=== PATIENT | female | born 1930 | race Hispanic/Latino ===

== ENCOUNTER 2017-12-08 09:01 | Emergency (ER) | payer MEDICARE ==
[2017-12-08 09:10] VITALS: BMI 33.3
[2017-12-08 09:26] VITALS: RESP 18; TEMP 97.9
--- NOTE | 2017-12-08 09:35 | ED PDOC ---
Arrival/HPI - General Chief Complaint: Trauma Time Seen by Provider: 12/08/17 09:11 Historian: Patient, Family - History of Present Illness Narrative History of Present Illness (Text): 12/08/17 09:36 A 87 year old female, whose past medical history includes 5 cardiac stents, a defibrillator, hypertension, and hyperlipidemia, presents to the emergency department accomapnied by family s/p mechanical fall from yesterday. Patient reports she was in her yard when she forgot to lock on of the brakes on her walker with a seat, as she was bending down to lock the brake the walker slid out from under her and she fell straight down on her tailbone and buttocks. Patient notes in the fall she landed on her right arm injuring her elbow, wrist, and hand. Patient does not remember and is unsure of any head injury. Patient and family note she is seeing Dr. Camarena, her PMD, on . Patient denies any fever, chills, shortness of breath, chest pain, diarrhea, nausea, vomiting, urinary symptoms, back pain, neck pain, headache, dizziness, or any other complaints. PMD: Ziyad Franco Manager Employee Benefits: Dr. Hammond Past Medical History - Reproductive Menopause: No - Cardiac Hx Cardiac Disorders: Yes Hx Hypertension: Yes - Pulmonary Hx Respiratory Disorders: No - Neurological Hx Neurological Disorder: No - HEENT Hx HEENT Disorder: No Hx Blind: No - Renal Hx Renal Disorder: No - Endocrine/Metabolic Hx Endocrine Disorders: No - Hematological/Oncological Hx Blood Disorders: No - Integumentary Hx Dermatological Disorder: No - Musculoskeletal/Rheumatological Hx Musculoskeletal Disorders: Yes Hx Falls: Yes - Gastrointestinal Hx Gastrointestinal Disorders: No - Genitourinary/Gynecological Hx Genitourinary Disorders: No - Psychiatric Hx Psychophysiologic Disorder: No Hx Substance Use: No - Surgical History Hx Appendectomy: Yes Hx Cardiac Catheterization: Yes (5 stents & defib) Hx Coronary Stent: Yes (5) Hx Hysterectomy: Yes (partial) Hx Joint Replacement: Yes (bilateral knees, right hip) Other/Comment: defibrillator - Anesthesia Hx Anesthesia: Yes Hx Anesthesia Reactions: Yes ("I got sick to my stomach after it.") Family/Social History Family/Social History: No Known Family HX Smoking Status: Never Smoked Hx Alcohol Use: No (OCCASIONALLY) Hx Substance Use: No Allergies/Home Meds Allergies/Adverse Reactions: Allergies enalapril Allergy (Verified 11/26/15 18:51) RASH propofol Allergy (Verified 11/26/15 18:51) RASH Home Medications: Home Meds Medication Instructions Recorded Confirmed Aspirin 81 mg PO DAILY 02/02/15 11/26/15 RX: Alprazolam [Xanax] 0.25 mg PO DAILY 02/02/15 11/26/15 RX: Irbesartan [Avapro] 150 mg PO DAILY 02/02/15 11/26/15 RX: Isosorbide Mononitrate ER 30 mg PO DAILY 02/02/15 11/26/15 [Imdur ER] RX: Metoprolol Succinate XL 25 mg PO DAILY 02/02/15 11/26/15 [Toprol XL] Warfarin Sodium [Coumadin] 5 mg PO DAILY 02/02/15 11/26/15 RX: Furosemide [Lasix] 40 mg PO DAILY 11/26/15 11/26/15 RX: Pravastatin Sodium [Pravachol] 40 mg PO DAILY 11/26/15 11/26/15 Review of Systems - Review of Systems Constitutional: absent: Fevers, Night Sweats Respiratory: absent: SOB Cardiovascular: absent: Chest Pain Gastrointestinal: absent: Diarrhea, Nausea, Vomiting Genitourinary Female: absent: Urine Output Changes Musculoskeletal: Back Pain (+pain in lower back Ul), Other (+pain in right arm) Endocrine: absent: Normal, Diaphoresis, Polyuria, Polydipsia, Other Physical Exam Vital Signs Reviewed: Yes Vital Signs Temp Pulse Resp BP Pulse Ox 12/08/17 11:41 90 18 127/65 96 12/08/17 09:15 97.9 F 93 H 18 143/61 97 Temperature: Afebrile Blood Pressure: Normal Pulse: Tachycardic Respiratory Rate: Normal Appearance: Positive for: Well-Appearing, Non-Toxic, Comfortable Pain Distress: None Mental Status: Positive for: Alert and Oriented X 3 - Systems Exam Head: Present: Atraumatic, Normocephalic. No: Tenderness, Contusion, Swelling, Ecchymosis, Abrasion, Laceration Pupils: Present: PERRL Extroacular Muscles: Present: EOMI Conjunctiva: Present: Normal Mouth: Present: Moist Mucous Membranes Neck: Present: Normal Range of Motion Respiratory/Chest: Present: Clear to Auscultation, Good Air Exchange. No: Respiratory Distress, Accessory Muscle Use Cardiovascular: Present: Regular Rate and Rhythm, Normal S1, S2. No: Murmurs Abdomen: No: Tenderness, Distention, Peritoneal Signs Back: Present: Other (+tenderness to sacrum). No: CVA Tenderness, Midline Tenderness, Paraspinal Tenderness, Pain with Leg Raise, Decubitus Ulcer Upper Extremity: Present: Tenderness (+tenderness to wrist) Lower Extremity: Present: Normal Inspection. No: Edema Neurological: Present: GCS=15, CN II-XII Intact, Speech Normal Skin: Present: Abrasion (+abrasion to right elbow) Psychiatric: Present: Alert, Oriented x 3, Normal Insight, Normal Concentration Medical Decision Making ED Course and Treatment: 12/08/17 09:36 Impression: 87 year old female presenting to the emergency department s/p fall. Differential Diagnosis included but are not limited to: rule out ACH Plan: -- Heact CT without contrast -- Tylenol -- Xray of elbow -- Xray of left hand -- Xray of pelvis -- Xray of scarum and coccyx -- Xray of left wrist -- Reassess and disposition Prior Visits: Notes and results from previous visits were reviewed. Progress Notes: 12/08/17 11:12 Procedure: Head CT Impression: No acute intracranial pathology identified. 12/08/17 11:19 As per radiologist, all Xrays were reviewed and results are negative. CT head negative. Patient's wrist was given a soft wrist brace. Patient was given instr uctions on fall precautions and advised to follow up with her primary care doctor. - Lab Interpretations Lab Results: Lab Results 12/08/17 09:55: PT 26.0 H, INR 2.22, APTT 34.7 - RAD Interpretation Radiology Orders: 12/08/17 09:33 HEAD W/O CONTRAST [CT] Stat 12/08/17 09:34 ELBOW RIGHT 3 VIEWS ROUTINE [RAD] Stat HAND RIGHT 3 VIEWS [RAD] Stat WRIST, RIGHT 3 VIEWS [RAD] Stat 12/08/17 09:35 PELVIS ONE VIEW [RAD] Stat SACRUM &/or COCCYX (MIN 2VW) [RAD] Stat - Medication Orders Current Medication Orders: Discontinued Medications Acetaminophen (Tylenol 325mg Tab) 975 mg PO STAT STA Stop: 12/08/17 09:39 Last Admin: 12/08/17 09:46 Dose: 975 mg - Scribe Statement The provider has reviewed the documentation as recorded by the Ashley Romero All medical record entries made by the Mansiibe were at my direction and person ally dictated by me. I have reviewed the chart and agree that the record accurately reflects my personal performance of the history, physical exam, medical decision making, and the department course for this patient. I have also personally directed, reviewed, and agree with the discharge instructions and disposition. Disposition/Present on Arrival - Present on Arrival Any Indicators Present on Arrival: No History of DVT/PE: No History of Uncontrolled Diabetes: No Urinary Catheter: No History of Decub. Ulcer: No History Surgical Site Infection Following: None - Disposition Have Diagnosis and Disposition been Completed?: Yes Diagnosis: Fall, Wrist sprain, Elbow contusion Disposition: HOME/ ROUTINE Disposition Time: 11:41 Patient Plan: Discharge Condition: IMPROVED Discharge Instructions (ExitCare): Wrist Sprain (DC), Contusion (DC), Preventing Falls Additional Instructions: GRACIA ISLAS, thank you for letting us take care of you today. Your provider was Brian Thomas DO and you were treated for WRIST INJURY. The emergency medical care you received today was directed at your acute symptoms. If you were prescribed any medication, please fill it and take as directed. It may take several days for your symptoms to resolve. Return to the Emergency Department if your symptoms worsen, do not improve, or if you have any other problems. Please contact your doctor or call one of the physicians/clinics you have been referred to that are listed on the Patient Visit Information form that is included in your discharge packet. Bring any paperwork you were given at [facility], [place] with you along with any medications you are taking to your follow up visit. Our treatment cannot replace ongoing medical care by a primary care provider outside of the emergency department. Thank you for allowing the [facility] team to be part of your care today. If you had an X-Ray or CT scan: A Radiologist will review the ED reading if any change in treatment is needed we will contact you. If you had a blood, urine, or wound culture: It will take several days for the results, if any change in treatment is needed we will contact you. If you had an STI test: It will take 48 hours for the results. Please call after 1 week if you have not heard back. Referrals: Ziyad Camarena MD [Primary Care Provider] - Follow up with primary Forms: PagerDuty (Sinhala)
[2017-12-08 10:19] LABS: INR 2.22; PARTIAL THROMBOPLASTIN TIME 34.7 Seconds (25.1-36.5)
--- NOTE | 2017-12-08 10:39 | CT ---
Date of service: 12/08/2017 PROCEDURE: CT HEAD WITHOUT CONTRAST. HISTORY: suspected head injury r/o ich COMPARISON: Noncontrast head CT performed 11/30/15 TECHNIQUE: Axial computed tomography images were obtained through the head/brain without intravenous contrast. Radiation dose: Total exam DLP = 945.78 mGy-cm. This CT exam was performed using one or more of the following dose reduction techniques: Automated exposure control, adjustment of the mA and/or kV according to patient size, and/or use of iterative reconstruction technique. FINDINGS: HEMORRHAGE: No intracranial hemorrhage. BRAIN: Diffuse atrophy with prominence of the ventricles and sulci noted. No mass effect or edema. Scattered periventricular and subcortical white matter hypodensities, which are nonspecific, but often seen with chronic microvascular ischemic disease. VENTRICLES: No hydrocephalus. CALVARIUM: Unremarkable. PARANASAL SINUSES: Unremarkable as visualized. No significant inflammatory changes. MASTOID AIR CELLS: Under aeration of the left mastoid air cells; correlate for history of mastoiditis. The right mastoid air cells appear unremarkable. OTHER FINDINGS: None. IMPRESSION: No acute intracranial pathology identified. Additional incidental findings as above.
--- NOTE | 2017-12-08 11:23 | RAD ---
Date of service: 12/08/2017 PROCEDURE: Right Wrist Radiographs. HISTORY: fall r/o fx COMPARISON: None. FINDINGS: BONES: Normal. No fracture. JOINTS: Degenerative changes are seen in the carpal joints as well as the radial ulnar joint. SOFT TISSUES: Normal. OTHER FINDINGS: None. IMPRESSION: No acute fracture
[2017-12-08 11:41] VITALS: BP 127/65; PULSE 90; O2SAT 96
--- NOTE | 2017-12-08 15:04 | RAD ---
Date of service: 12/08/2017 PROCEDURE: Pelvis single view HISTORY: fall r/o fx COMPARISON: TECHNIQUE: FINDINGS: There is a right hip prosthesis. There is no fracture or loosening. The left hip is unremarkable. The pelvis is intact IMPRESSION: Negative study
--- NOTE | 2017-12-08 15:05 | RAD ---
Date of service: 12/08/2017 PROCEDURE: Radiographs of the Sacrum and Coccyx HISTORY: fall r/o fx COMPARISON: None available. TECHNIQUE: Frontal and lateral views of the sacrum and coccyx FINDINGS: BONES: Sacrum and coccyx unremarkable. No fracture or focal lesion. SACROILIAC JOINTS: Unremarkable. OTHER FINDINGS: None. IMPRESSION: Unremarkable radiographs of the sacrum and coccyx.
--- NOTE | 2017-12-08 15:06 | RAD ---
PROCEDURE: Right Hand Radiographs. HISTORY: fall r/o fx COMPARISON: None. FINDINGS: BONES: Normal. No fracture. JOINTS: Osteoarthritis can be seen in the DIP and PIP joints as well as the carpal bones. Degenerative changes are also seen in the radial ulnar joint. SOFT TISSUES: Normal. OTHER FINDINGS: None. IMPRESSION: Osteoarthritis can be seen in the DIP and PIP joints as well as the carpal bones. Degenerative changes are also seen in the radial ulnar joint.
--- NOTE | 2017-12-08 15:07 | RAD ---
Date of service: 12/08/2017 PROCEDURE: Radiographs of the left elbow. HISTORY: fall r/o fx COMPARISON: No prior. FINDINGS: BONES: Normal. No fracture. JOINTS: Normal. No osteoarthritis. SOFT TISSUES: Normal. JOINT EFFUSION: None. OTHER FINDINGS: None IMPRESSION: Unremarkable radiographs of the left elbow.
== END 2017-12-08 11:55 | disposition home or self-care (01) ==
LOC: ED 09:01
DX: S63.501A Unspecified sprain of right wrist, initial encounter (principal); S50.01XA Contusion of right elbow, initial encounter; W19.XXXA Unspecified fall, initial encounter; Y92.096 Garden or yard of other non-institutional residence as the place of occurrence of the external cause; E78.5 Hyperlipidemia, unspecified; I10 Essential (primary) hypertension

== ENCOUNTER 2018-08-10 12:09 | Outpatient (CLI) | payer MEDICARE | END 2018-08-10 12:10 | disposition home or self-care (01) | LOC: RAD 12:10 ==